=== PATIENT | male | born 1965 | race Caucasian/White ===

== ENCOUNTER 2018-10-20 17:50 | Emergency (ER) | payer BC, OTHER ==
[~2018-10-20] VITALS: Ht 172.7 cm; Wt 122.7 kg
[2018-10-20] MEDS ORDERED: CARV3.12 PO (18:39)
[2018-10-20] MEDS ORDERED: NIACCAP PO (18:39)
[2018-10-20] MEDS ORDERED: ATOR1TAB19 PO (18:39)
[2018-10-20] MEDS ORDERED: FURO80TA2 PO (18:39)
[2018-10-20] MEDS ORDERED: ZYLO300T6 PO (18:39)
[2018-10-20] MEDS ORDERED: LOSA100T50 PO (18:39)
[2018-10-20] MEDS ORDERED: METF500T13 PO (18:39)
[2018-10-20] MEDS ORDERED: POTA10CA32 PO (18:39)
[2018-10-20] MEDS ORDERED: AMLO2.5T3 PO (18:39)
[2018-10-20] MEDS ORDERED: ADVI100T PO (18:40)
[2018-10-20] MEDS ORDERED: IBUPROFEN 600 MG TAB PO ONE (18:45)
[2018-10-20] MEDS ORDERED: GI COCKTAIL 50ML BTL(HYOSCYAMINE/MAALOX/LIDOCAINE VISCOUS)(1:3:1) PO ONE (18:45)
[2018-10-20] MEDS ORDERED: ACETAMINOPHEN TAB 650MG DOSE (2X325MG) PO ONE (19:15)
--- NOTE | 2018-10-20 20:09 | REP ---
Right knee five views : There is no fracture or dislocation. Mineralization and joint spaces are normal. There are no calcifications or foreign bodies. There is no effusion. Impression: Negative right knee . Electronically Signed by Teofilo Perez MD 10/20/2018 08:00 P
[2018-10-20 21:03] VITALS: BP 130/74
--- NOTE | 2018-10-22 09:09 | REP ---
Bilateral lower extremity deep vein duplex ultrasound: The deep veins demonstrate normal compression, normal Doppler color flow and normal Doppler waveforms with respiration and augmentation from the popliteal veins to the common femoral veins bilaterally . Impression: There is no deep vein thrombus in the right or left lower extremities. Electronically Signed by Teofilo Perez MD 10/21/2018 08:21 A
== END 2018-10-20 21:04 | disposition home or self-care (01) ==
LOC: M ED 17:50
DX: S83.91XA Sprain of unspecified site of right knee, initial encounter (principal); X58.XXXA Exposure to other specified factors, initial encounter; Y92.89 Other specified places as the place of occurrence of the external cause; Z79.899 Other long term (current) drug therapy

== ENCOUNTER → 2018-11-13 | Outpatient (REF) | payer OTHER ==
[~2018-11-13] MED LIST: ADVI100T PO; AMLO2.5T3 PO; ATOR1TAB19 PO; CARV3.12 PO; FURO80TA2 PO; LOSA100T50 PO; METF500T13 PO; NIACCAP PO; POTA10CA32 PO; ZYLO300T6 PO
[2018-11-13 17:46] LABS: INR 0.96; PROTHROMBIN TIME 12.9 SECONDS (12.1-14.4)
[2018-11-13 17:47] LABS: PARTIAL THROMBOPLASTIN TIME 30.7 SECONDS (25.4-37.6)
== END ==
LOC: M LAB REF 16:25
PROVIDERS: ATTEND Internal Medicine
DX: M25.461 Effusion, right knee (principal); M25.561 Pain in right knee

== ENCOUNTER → 2018-11-13 | Outpatient (CLI) | payer OTHER ==
--- NOTE | 2018-11-13 17:16 | REP ---
Duplex extremity venous ultrasound: Right lower extremity. History: Pain and swelling. Rule out DVT. Findings: The deep veins are anechoic and fully compressible from the groin to the popliteal fossa in the right lower extremity. Color flow imaging is homogeneous. Spectral Doppler interrogation demonstrates intact respiratory variation in flow and normal manual augmentation of flow. There is no evidence of deep vein thrombosis. Impression: Negative right lower extremity duplex venous ultrasound. No evidence of deep vein thrombosis. Electronically Signed by Wilfred Willoughby MD 11/13/2018 07:37 P
== END ==
LOC: M RAD 16:11
PROVIDERS: ATTEND Internal Medicine
DX: M79.604 Pain in right leg (principal); R22.41 Localized swelling, mass and lump, right lower limb

== ENCOUNTER → 2020-03-07 | Outpatient (REF) | payer OTHER ==
[2020-03-08 07:07] LABS: LDL DIRECT 40 mg/dL (0-99)
== END ==
LOC: M LAB REF 11:59
PROVIDERS: ATTEND Internal Medicine
DX: E78.2 Mixed hyperlipidemia (principal); M79.671 Pain in right foot; M79.672 Pain in left foot; R23.2 Flushing; F41.8 Other specified anxiety disorders; E66.9 Obesity, unspecified; Z83.49 Family history of other endocrine, nutritional and metabolic diseases; K58.0 Irritable bowel syndrome with diarrhea; Z68.31 Body mass index [BMI] 31.0-31.9, adult

== ENCOUNTER 2023-10-28 16:40 | Emergency (ER) | payer OTHER ==
[~2023-10-28] VITALS: Ht 172.7 cm; Wt 104.2 kg
[~2023-10-28 16:40] MED LIST changes: -BD P32MI SC; -GLUCMIS7 XX; -LANC1COM MC; -LANTINJ4 SC
[2023-10-28] MEDS: NS 1,000 ML IV ONE ×2 (16:55→18:38)
[2023-10-28 18:00] LABS: BASO % 0.5 % (0.0-1.0); EOS # 0.3 10^3/uL (0.0-0.5); EOS % 5.1 % (0.0-3.0); HEMATOCRIT 40.1 % (42.0-52.0); HEMOGLOBIN 14.6 g/dl (13.5-17.5); LIPASE 73 U/L (12-53); LYMPH # 1.8 10^3/uL (1.5-5.0); MEAN CORPUSCULAR HEMOGLOBIN 29.9 pg (27.0-33.0); MEAN CORPUSCULAR HGB CONC 36.4 g/dl (32.0-36.5); MEAN CORPUSCULAR VOLUME 82.2 fl (80.0-96.0); MONO # 0.4 10^3/uL (0.0-0.8); MONO % 6.7 % (2.0-8.0); NEUTROPHILS # 3.8 10^3/uL (1.5-8.5); NEUTROPHILS % 58.8 % (36.0-66.0); PLATELET COUNT, AUTOMATED 208 10^3/uL (150-450); RED BLOOD COUNT 4.88 10^6/uL (4.30-6.10); WHITE BLOOD COUNT 6.4 10^3/uL (4.0-10.0)
[2023-10-28] MEDS: HumuLIN R (REGULAR) INSULIN (NovoLIN R) **100U/ML** PER UNIT IV ONE (18:00)
[2023-10-28 18:05] LABS: HEMOGLOBIN A1c > 14.0 % (4.0-6.0)
[2023-10-28] MEDS ORDERED: LANC1COM MC (18:09)
[2023-10-28] MEDS ORDERED: GLUCMIS7 XX (18:09)
[2023-10-28] MEDS ORDERED: ISOVUE-370 76% 100ML VIAL As Ordered ONE (18:16)
[2023-10-28 18:31] LABS: ALBUMIN 3.8 G/DL (3.2-5.2); ALKALINE PHOSPHATASE 112 U/L (46-116); ALT/SGPT 43 U/L (7.0-40); AST/SGOT 20 U/L (<34); BILIRUBIN,DIRECT 0.3 MG/DL (<0.4); BILIRUBIN,TOTAL 1.1 MG/DL (0.3-1.2); BLOOD UREA NITROGEN 12 MG/DL (9-23); CALCIUM LEVEL 8.9 MG/DL (8.5-10.1); CARBON DIOXIDE LEVEL 24 MMOL/L (20-31); CHLORIDE LEVEL 95 MMOL/L (98-107); CREATININE FOR GFR 0.81 MG/DL (0.70-1.30); GLOMERULAR FILTRATION RATE > 60.0 (>56); GLUCOSE, FASTING 655 MG/DL (60-100); POTASSIUM SERUM 3.9 MMOL/L (3.5-5.1); SODIUM LEVEL 131 MMOL/L (136-145); TOTAL PROTEIN 6.5 G/DL (5.7-8.2)
[2023-10-28] MEDS ORDERED: BD P32MI SC (20:43)
[2023-10-28] MEDS ORDERED: LANTINJ4 SC (20:43)
[2023-10-28 20:59] VITALS: TEMP 97.8; O2SAT 98
[2023-10-28 21:00] VITALS: BP 154/78
== END 2023-10-28 21:24 | disposition home or self-care (01) ==
LOC: M ED 16:40
DX: E11.65 Type 2 diabetes mellitus with hyperglycemia (principal); I44.4 Left anterior fascicular block; I44.7 Left bundle-branch block, unspecified; I10 Essential (primary) hypertension; E78.5 Hyperlipidemia, unspecified; Z88.0 Allergy status to penicillin; Z79.02 Long term (current) use of antithrombotics/antiplatelets; Z79.810 Long term (current) use of selective estrogen receptor modulators (SERMs); Z79.811 Long term (current) use of aromatase inhibitors; Z79.4 Long term (current) use of insulin; Z79.899 Other long term (current) drug therapy
CPT/HCPCS: 74177; 80047; 80048; 80076; 83036; 83690; 85025; 93005; 96361; 96374; 99283; 99284; J1815; Q9967

== ENCOUNTER → 2023-10-28 | Outpatient (REF) | payer OTHER ==
[~2023-10-28] MED LIST changes: +BD P32MI SC; +GLUCMIS7 XX; +LANC1COM MC; +LANTINJ4 SC; +LOSA100T46 PO; -LOSA100T50 PO; -POTA10CA32 PO; +POTA10CA60 PO
== END ==
LOC: M LAB REF 16:24
PROVIDERS: ATTEND Internal Medicine
DX: R63.4 Abnormal weight loss (principal)

== ENCOUNTER 2024-01-04 06:26 | Day surgery (SDC) | payer OTHER ==
[~2024-01-04] VITALS: Ht 172.7 cm; Wt 104.8 kg
[~2024-01-04 06:26] MED LIST changes: +BD P32MI SC; +GLUCMIS7 XX; +LANC1COM MC; +LANTINJ4 SC; -POTA10CA60 PO; +POTA10CA70 PO
[2024-01-04] MEDS: NS 1,000 ML IV ONE (07:01)
[2024-01-04] MEDS ORDERED: LIDOCAINE 2% 100MG/5ML SDV (FOR ANES.) As Ordered ONE (07:17)
[2024-01-04] MEDS ORDERED: propofoL 200 MG/20 ML VIAL As Ordered ONE (07:17)
[2024-01-04 08:10] VITALS: BP 179/90; TEMP 96.9; O2SAT 97
== END 2024-01-04 08:15 | disposition home or self-care (01) ==
LOC: M OPP 06:26
PROVIDERS: ATTEND Surgery
DX: Z12.11 Encounter for screening for malignant neoplasm of colon (principal); D12.2 Benign neoplasm of ascending colon; D12.4 Benign neoplasm of descending colon; K63.5 Polyp of colon; K64.1 Second degree hemorrhoids; Z79.02 Long term (current) use of antithrombotics/antiplatelets; Z79.3 Long term (current) use of hormonal contraceptives; Z79.899 Other long term (current) drug therapy; Z88.0 Allergy status to penicillin